=== PATIENT | male | born 1980 | race Caucasian/White ===

== ENCOUNTER 2017-04-11 09:55 | Emergency (ER) | payer OTHER ==
[2017-04-11 10:04] VITALS: BP 131/84; PULSE 71; TEMP 97.8
== END 2017-04-11 10:11 | disposition home or self-care (01) ==
LOC: COL.ER 09:55
DX: S61.511D Laceration without foreign body of right wrist, subsequent encounter (principal); X58.XXXD Exposure to other specified factors, subsequent encounter